=== PATIENT | male | born 1990 | race Caucasian/White ===

== ENCOUNTER 2020-07-20 14:51 | Emergency (ER) | payer SELFPAY ==
[~2020-07-20] VITALS: Ht 170.2 cm; Wt 81.6 kg
[2020-07-20 15:00] VITALS: BP 138/89
--- NOTE | 2020-07-20 15:10 | NUR ---
Pt c/o chills, subjective fever, and body aches 5 days ago and nausea, vomiting, diarrhea for 2 days. Pt reports his daughter, son, and mother in law had covid. Pt has been tested for covid in another facility and wants to check up again here.
--- NOTE | 2020-07-20 16:01 | NUR ---
Per security, pt left to take his somewhere. Attempted to call patient at phone number on account, but no answer.
[2020-07-20 16:29] VITALS: BP 138/89
== END 2020-07-20 16:30 | disposition home or self-care (01) ==
LOC: MED 14:51
DX: R50.9 Fever, unspecified (principal); M79.10 Myalgia, unspecified site; R11.2 Nausea with vomiting, unspecified; Z20.828 Contact with and (suspected) exposure to other viral communicable diseases
CPT/HCPCS: 99283